=== PATIENT | female | born 1945 | race Hispanic/Latino ===

== ENCOUNTER → 2019-07-18 | Day surgery (SDC) | payer MEDICARE ==
[2019-07-15 11:19] LABS: BASOPHILS % 0.5 % (0.0-1.0); EOSINOPHILS # (AUTO) 0.1 (0.0-0.4); EOSINOPHILS % 1.5 % (0.0-6.0); HEMATOCRIT 38.6 % (34.2-44.1); HEMOGLOBIN 12.6 g/dL (12.0-16.0); LYMPHOCYTES # (AUTO) 2.1 (1.0-3.2); LYMPHOCYTES % 35.1 % (18.0-39.1); MEAN CORPUSCULAR HEMOGLOBIN 26.8 pg (28-32); MEAN CORPUSCULAR HGB CONC 32.6 g/dL (31-35); MEAN CORPUSCULAR VOLUME 82.1 fL (81-99); MONOCYTES # (AUTO) 0.5 (0.2-0.8); NEUTROPHILS # (AUTO) 3.2 (2.1-6.9); NEUTROPHILS % 54.7 % (38.7-80.0); PLATELET COUNT 313 x10e3/uL (140-360); RED CELL DISTRIBUTION WIDTH 14.3 % (11.7-14.4)
[2019-07-15 11:34] LABS: ANION GAP 14.8 mmol/L (8-16); BLOOD UREA NITROGEN 11 mg/dL (7-26); BUN/CREATININE RATIO 17 (6-25); CALCIUM 9.2 mg/dL (8.4-10.2); CARBON DIOXIDE 23 mmol/L (22-29); CHLORIDE 103 mmol/L (98-107); CREATININE, SERUM 0.65 mg/dL (0.57-1.11); EST GLOMERULAR FILTRATION RATE > 60 ML/MIN (60-); GLUCOSE 163 mg/dL (74-118); POTASSIUM 3.8 mmol/L (3.5-5.1); SODIUM 137 mmol/L (136-145)
--- NOTE | 2019-07-15 11:39 | Diagnostic Imaging Report ---
EXAM: CHEST 2 VIEWS DATE: 07/15/2019 10:46 AM INDICATION: Preoperative evaluation COMPARISON: None FINDINGS: The trachea is midline. The lungs are symmetrically expanded without evidence for focal consolidation, pneumothorax, or significant pleural effusion. The cardiomediastinal silhouette is within normal limits. No acute osseous abnormalities identified. IMPRESSION: No acute cardiopulmonary process identified. Signed by: Dr. Sudhir García MD on 07/15/2019 11:35 AM
[~2019-07-18] MED LIST: ATORVASTATIN CA20 MG PO; B&O 60MG R/S 60 MG SUPP PR ONE; CEFTRIAXONE SOD 1 GM/NS 50 ML 50 ML IV ONE; DEXAMETHASONE SOD PHOS INJ 4 MG/ML VIAL ONE; GABAPENTIN100 MG PO; IOPAMIDOL 610MG/1ML 300 MG/ML VIAL IV ONE; IOTHALAMATE MEGLUMINE 17.20% 250 ML BTL ONE; LEVOTHYROXINE50 MCG PO; LIDOCAINE HCL 2% LOCAL INJ 5 ML SDV VIAL INJ ONE; LORAZEPAM1 MG PO; METFORMIN HCL500 MG PO; ONDANSETRON HCL INJ 2MG/ML 2ML 2 MG/ML VIAL ONE; ONE A DAY VITAMIN PO; PROPOFOL IV EMULSION 10 MG/ML 20 ML VIAL ONE; SEVOFLURANE INHAL SOLN 250 ML PEN BTL ONE
[2019-07-18 11:45] VITALS: BP 150/81
--- NOTE | 2019-08-26 04:51 | Operative Report ---
DATE OF PROCEDURE: 07/18/2019 SURGEON: Jake Hernandez MD PREOPERATIVE DIAGNOSES: 1. Interstitial cystitis. 2. Urinary tract infections. 3. Mixed type urinary incontinence. POSTOPERATIVE DIAGNOSES: 1. Interstitial cystitis. 2. Urinary tract infections. 3. Mixed type urinary incontinence. 4. Grade 1 left vesicoureteral reflux. 5. Grade 1 cystocele. 6. Grade 2 rectocele. 7. Urethral hypermobility. 8. Atrophic (senile) vaginitis. OPERATIONS PERFORMED: 1. Cystourethroscopy with bilateral ureteral catheterization and retrograde ureteropyelography (separate procedure performed for the diagnosis of urinary tract infection). 2. Interpretation of retrograde ureteropyelography. 3. Interpretation of cystography. 4. Supervision of fluoroscopy, no radiologist present. 5. Cystourethroscopy with hydrodistention (separate procedure performed for the interstitial cystitis). 6. Pelvic examination under anesthesia. ANESTHESIA: General. COMPLICATIONS: None. CLINICAL SUMMARY: Candy Goodwin is a 74-year-old woman with urinary tract infections and interstitial cystitis. She is brought for the above procedures. She is aware of the risks of bleeding, infection, injury to adjacent structures, need for additional procedures, and elected to proceed. The patient has severe overactive bladder and she has enuresis as well as nocturia x5. PROCEDURE IN DETAIL: Informed consent was verified. Candy Goodwin was properly identified, taken to the operating room, and placed on the cystoscopy table in supine position. Anesthesia was uneventfully begun. The patient was then carefully and gently repositioned in the dorsal lithotomy position with all pressure points well padded. Her genitalia were prepared and draped in usual sterile fashion. The cystoscope sheath with obturator in place was atraumatically inserted into the patient's urethra and the bladder was drained. Panendoscopy of the urinary bladder was performed with cystography revealed grade 1-2 trabeculations. There was a left greater than right patulous ureteral orifice, raised the suspicion of vesicoureteral reflux. Panendoscopy did not reveal any tumors, no stones, and no diverticula. Interpretation of cystography bladder wall was smooth. There was grade 1+ vesicoureteral reflux on the left hand side. This seem to cause fullness of the left ureter and the left kidney as well. Unobstructed drainage was observed on the left hand side on cystography. An 8-Macanese catheter was used to cannulate each ureter and retrograde ureteropyelograms were performed. Interpretation of retrograde ureteropyelography contrast was instilled in retrograde fashion bilaterally. There were no tumors. There were no stones. There were no suspicious lesions. There was more fullness of the left ureter compared to the right ureter and left kidney compared to the right kidney with tortuosity of both ureters in the region of the proximal ureter. Tortuosity was most prominent at the left ureteropelvic junction region. Nevertheless, unobstructed drainage was observed bilaterally fluoroscopically. Hydrodistention of the bladder was then carried out at exactly 80 cm of height and held in place for exactly 2 minutes. This revealed a bladder capacity under anesthesia of only 550 mL. Panendoscopy of the urinary bladder following hydrodistention revealed glomerulations throughout. No Hunner's ulcers were identified. The patient's bladder was drained and the cystoscope was withdrawn. Pelvic examination revealed a grade 1 cystocele, grade 2 rectocele, there was urethral hypermobility, and atrophic (senile) vaginitis. No abnormal palpable pelvic masses could be appreciated. There were no obvious mucosal lesions. A belladonna and opium suppository were placed, and the patient was uneventfully reversed from anesthesia and taken to recovery room in stable condition. Explicit postoperative instructions were given. We will follow the patient up in the office. The patient was also recommended that she complete the radiology services that we recommended she obtain. Jake Hernandez MD [place]/MOD[facility] /[id number] cc: Moisés Jeffrey MD
== END | disposition home or self-care (01) ==
LOC: OR 08:39
PROVIDERS: ATTEND Urology
DX: N30.10 Interstitial cystitis (chronic) without hematuria (principal); N39.0 Urinary tract infection, site not specified; E11.9 Type 2 diabetes mellitus without complications; E03.9 Hypothyroidism, unspecified; R35.1 Nocturia; N32.81 Overactive bladder; N39.46 Mixed incontinence; N81.10 Cystocele, unspecified; N81.6 Rectocele; N36.41 Hypermobility of urethra; N95.2 Postmenopausal atrophic vaginitis; N13.70 Vesicoureteral-reflux, unspecified
CPT/HCPCS: 36415 ×2; 52260; 71046; 74420; 80048; 82948; 85025; 93005; C1758; J0696; J1100; J2001; J2405; J2704; Q9958; Q9967